=== PATIENT | male | born 1955 | race Caucasian/White ===

== ENCOUNTER 2016-09-25 12:32 | Emergency (ER) | payer OTHER ==
[~2016-09-25] VITALS: Ht 177.8 cm; Wt 65.0 kg
[2016-09-25 12:33] VITALS: BP 108/77; PULSE 72; RESP 16; TEMP 98.2; O2SAT 98
[2016-09-25] MEDS ORDERED: SODIUM CHLOR 0.9% 1000 ML INJ 1,000 ML IV SCH (12:42)
[2016-09-25] MEDS ORDERED: XANA1TAB2 PO (12:43)
[2016-09-25] MEDS ORDERED: LOMO2.5T PO (12:43)
[2016-09-25] MEDS ORDERED: HYDR-3583 PO (12:43)
[2016-09-25] MEDS ORDERED: LISI10TA3 PO (12:43)
[2016-09-25] MEDS ORDERED: PANTOPRAZOLE SODIUM 40 MG VIAL IVP ONE (12:45)
[2016-09-25] MEDS ORDERED: ONDANSETRON HCL 4 MG/2 ML VIAL IVP ONE (12:45)
--- NOTE | 2016-09-25 12:51 | PD ---
HPI Chief Complaint: GI Complaint Time Seen by Provider: 12:37 Travel History International Travel<30 days: No Contact w/Intl Traveler<30days: No Traveled to known affect area: No History of Present Illness HPI 61-year-old male complains of abdominal pain with nausea vomiting. Patient states that the symptoms started this a year ago. Patient was seen by GI specialist and had upper GI endoscopy and colonoscopy without clear etiology of the symptoms. Patient states that the abdominal pain in cramping pain mostly around the epigastric area. Patient denies any pain radiation. Patient states that the abdominal cramping with nausea vomiting small frequent for the past 2 months. Patient denies any fever chills. Patient denies any headache. Patient any chest pain or shortness of breath. Patient denies any dysuria or frequency. Patient denies any back pain. Patient states that he has history of hepatitis C and was treated with complete resolution of the problem. PFSH Social History Tobacco Use: No Allergies-Medications (Allergen,Severity, Reaction): Coded Allergies: No Known Allergies (Unverified , 09/25/16) Reported Meds & Prescriptions Reported Meds & Active Scripts Active Zofran Odt (Ondansetron Odt) 4 Mg Tab 4 Mg SL Q6HR PRN Bentyl (Dicyclomine HCl) 10 Mg Cap 10 Mg PO TID PRN Protonix (Pantoprazole Sodium) 20 Mg Tab 20 Mg PO DAILY Reported Hydrocodone-Acetaminophen 10-325 mg Tab 1 Tab PO Q4H PRN Xanax (Alprazolam) 1 Mg Tab 1 Mg PO Q6H PRN Lomotil (Diphenoxylate-Atropine) 2.5-0.025 Mg Tab 1 Tab PO Q6H PRN Lisinopril 10 Mg Tab 10 Mg PO DAILY Review of Systems General / Constitutional: No: Fever Eyes: No: Visual changes HENT: No: Headaches Cardiovascular: No: Chest Pain or Discomfort Respiratory: No: Shortness of Breath Gastrointestinal: Positive: Nausea, Vomiting, Abdominal Pain Genitourinary: No: Dysuria Musculoskeletal: No: Pain Skin: No Rash Neurologic: No: Weakness Psychiatric: No: Depression Endocrine: No: Polydipsia Hematologic/Lymphatic: No: Easy Bruising Physical Exam Narrative GENERAL: Well-nourished, well-developed patient. SKIN: Focused skin assessment warm/dry. HEAD: Normocephalic. EYES: No scleral icterus. No injection or drainage. NECK: Supple, trachea midline. No JVD or lymphadenopathy. CARDIOVASCULAR: Regular rate and rhythm without murmurs, gallops, or rubs. RESPIRATORY: Breath sounds equal bilaterally. No accessory muscle use. GASTROINTESTINAL: Abdomen soft, nondistended. Patient has mild tenderness on palpation epigastric area. No rebound tenderness. No mass MUSCULOSKELETAL: No cyanosis, or edema. BACK: Nontender without obvious deformity. No CVA tenderness. Neurologic exam normal. Data Data Last Documented VS Vital Signs Date Time Temp Pulse Resp B/P Pulse Ox O2 Delivery O2 Flow Rate FiO2 09/25/16 12:56 18 09/25/16 12:55 97 2 09/25/16 12:33 98.2 72 108/77 Orders Complete Blood Count With Diff (09/25/16 12:42) Comprehensive Metabolic Panel (09/25/16 12:42) Lipase (09/25/16 12:42) Prothrombin Time / Inr (Pt) (09/25/16 12:42) Act Partial Throm Time (Ptt) (09/25/16 12:42) Urinalysis - C+S If Indicated (09/25/16 12:42) Ct Abd/Pel W Iv Contrast(Rout) (09/25/16 12:42) Iv Access Insert/Monitor (09/25/16 12:42) Ecg Monitoring (09/25/16 12:42) Oximetry (09/25/16 12:42) Ondansetron Inj (Zofran Inj) (09/25/16 12:45) Pantoprazole Inj (Protonix Inj) (09/25/16 12:45) Sodium Chlor 0.9% 1000 Ml Inj (Ns 1000 M (09/25/16 12:42) Electrocardiogram (09/25/16 12:42) Drug Screen, Random Urine (09/25/16 12:47) Iohexol 350 Inj (Omnipaque 350 Inj) (09/25/16 14:03) Labs Laboratory Tests Test 09/25/16 09/25/16 12:46 13:35 White Blood Count 5.8 TH/MM3 Red Blood Count 3.83 MIL/MM3 Hemoglobin 12.2 GM/DL Hematocrit 35.2 % Mean Corpuscular Volume 92.1 FL Mean Corpuscular Hemoglobin 31.9 PG Mean Corpuscular Hemoglobin 34.7 % Concent Red Cell Distribution Width 12.4 % Platelet Count 186 TH/MM3 Mean Platelet Volume 8.4 FL Neutrophils (%) (Auto) 47.8 % Lymphocytes (%) (Auto) 41.3 % Monocytes (%) (Auto) 9.2 % Eosinophils (%) (Auto) 0.9 % Basophils (%) (Auto) 0.8 % Neutrophils # (Auto) 2.8 TH/MM3 Lymphocytes # (Auto) 2.4 TH/MM3 Monocytes # (Auto) 0.5 TH/MM3 Eosinophils # (Auto) 0.1 TH/MM3 Basophils # (Auto) 0.0 TH/MM3 CBC Comment DIFF FINAL Differential Comment Prothrombin Time 11.6 SEC Prothromb Time International 1.0 RATIO Ratio Activated Partial 28.3 SEC Thromboplast Time Sodium Level 137 MEQ/L Potassium Level 4.0 MEQ/L Chloride Level 102 MEQ/L Carbon Dioxide Level 27.4 MEQ/L Anion Gap 8 MEQ/L Blood Urea Nitrogen 13 MG/DL Creatinine 1.02 MG/DL Estimat Glomerular Filtration 74 ML/MIN Rate Random Glucose 80 MG/DL Calcium Level 8.7 MG/DL Total Bilirubin 0.8 MG/DL Aspartate Amino Transf 17 U/L (AST/SGOT) Alanine Aminotransferase 25 U/L (ALT/SGPT) Alkaline Phosphatase 58 U/L Total Protein 6.7 GM/DL Albumin 4.2 GM/DL Lipase 158 U/L Urine Color YELLOW Urine Turbidity CLEAR Urine pH 5.5 Urine Specific Foster 1.015 Urine Protein NEG mg/dL Urine Glucose (UA) NEG mg/dL Urine Ketones NEG mg/dL Urine Occult Blood NEG Urine Nitrite NEG Urine Bilirubin NEG Urine Urobilinogen LESS THAN 2.0 MG/DL Urine Leukocyte Esterase NEG Urine WBC 1 /hpf Microscopic Urinalysis Comment CULT NOT INDICATED Urine Opiates Screen POS Urine Barbiturates Screen NEG Urine Amphetamines Screen NEG Urine Benzodiazepines Screen POS Urine Cocaine Screen NEG Urine Cannabinoids Screen POS [facility] Medical Decision Making Medical Screen Exam Complete: Yes Emergency Medical Condition: Yes Interpretation(s) [address] scan abdomen and pelvis negative acute pathology. CBC within normal limit. CMP within normal limit. Urine drug screen positive for opiates , benzodiazepine, cannabis. UA is negative. Differential Diagnosis Differential diagnosis including gastritis, PUD, appendicitis, cholecystitis, colitis, UTI, pyelonephritis. Narrative Course 61-year-old male with recurrent abdominal pain and nausea vomiting. Diagnosis Primary Impression: Abdominal pain Qualified Code: R10.9 - Abdominal pain, unspecified location Patient Instructions: General Instructions Additional Instructions: Take medications as directed. Follow-up with undercoater. Return if worse. Med/Other Pt SpecificInfo: Prescription(s) given Scripts Ondansetron Odt (Zofran Odt)4 Mg Tab4 Mg SL Q6HR PRN (Nausea/Vomiting) #10 TAB Prov:Omar Yanez MD 09/25/16 Dicyclomine (Bentyl)10 Mg Cap10 Mg PO TID PRN (PAIN SCALE 1 TO 10) #30 CAP Ref 0 Prov:Omar Yanez MD 09/25/16 Pantoprazole (Protonix)20 Mg Tab20 Mg PO DAILY #30 TAB Prov:Omar Yanez MD 09/25/16 Disposition: 01 DISCHARGE HOME Condition: Stable Omar Yanez MD September 25, 2016 12:50
[2016-09-25 12:55] VITALS: O2SAT 97
[2016-09-25 13:14] LABS: AUTOMATED NEUTROPHIL # 2.8 TH/MM3 (1.8-7.7); BASOPHIL % 0.8 % (0.0-2.0); EOSINOPHIL # 0.1 TH/MM3 (0-0.4); EOSINOPHIL % 0.9 % (0.0-4.0); HEMATOCRIT 35.2 % (39.0-51.0); HEMO FLAGS DIFF FINAL; LYMPH % 41.3 % (9.0-44.0); LYMPHOCYTE # 2.4 TH/MM3 (1.0-4.8); MEAN CELL VOLUME 92.1 FL (80.0-100.0); MEAN CORPUSCULAR HEMOGLOBIN 31.9 PG (27.0-34.0); MEAN CORPUSCULAR HGB CONC 34.7 % (32.0-36.0); MONO % 9.2 % (0.0-8.0); NEUT % 47.8 % (16.0-70.0); PLATELET COUNT 186 TH/MM3 (150-450); RED BLOOD COUNT 3.83 MIL/MM3 (4.50-5.90); RED CELL DISTRIBUTION WIDTH 12.4 % (11.6-17.2); WHITE BLOOD COUNT 5.8 TH/MM3 (4.0-11.0)
[2016-09-25 13:19] LABS: APTT (PATIENT) 28.3 SEC (24.3-30.1); PROTHROMBIN TIME - PATIENT 11.6 SEC (9.8-11.6)
[2016-09-25 13:28] LABS: ALT (GPT) 25 U/L (12-78); ANION GAP 8 MEQ/L (5-15); AST (GOT) 17 U/L (15-37); BICARBONATE 27.4 MEQ/L (21.0-32.0); BLOOD UREA NITROGEN 13 MG/DL (7-18); CHLORIDE 102 MEQ/L (98-107); GLOMERULAR FILTRATION RATE 74 ML/MIN (>89); SODIUM (NA) 137 MEQ/L (136-145)
[2016-09-25 13:31] LABS: ALKALINE PHOSPHATASE 58 U/L (45-117); TOTAL BILIRUBIN ADULT 0.8 MG/DL (0.2-1.0)
[2016-09-25 14:00] LABS: BLOOD, URINE NEG (NEG); GLUCOSE,URINE NEG (NEG); KETONE, URINE NEG (NEG); NITRITE,URINE NEG (NEG); PH, URINE 5.5 (5.0-8.5); URINE COLOR YELLOW (YELLW/STRAW)
[2016-09-25 14:02] LABS: COMMENT (UR) CULT NOT INDICATED; CULTURE IF INDICATED CULT NOT INDICATED
[2016-09-25 14:03] LABS: AMPHETAMINE, URINE NEG (NEG); BARBITURATES, URINE NEG (NEG); COCAINE, URINE NEG (NEG)
[2016-09-25] MEDS ORDERED: IOHEXOL 350 MG/ML 10 ML VIAL (for RAD DIAG) IV ONE (14:03)
--- NOTE | 2016-09-25 14:19 | RADRPT ---
EXAM DATE/TIME: 09/25/2016 14:01 [place] COMPARISON: No previous studies available for comparison. INDICATIONS : Epigastric abdomen pain with nausea and vomiting for one month. IV CONTRAST: 76 cc Omnipaque 350 (iohexol) IV ORAL CONTRAST: No oral contrast ingested. RADIATION DOSE: 9.54 CTDIvol (mGy) MEDICAL HISTORY : None SURGICAL HISTORY : None. ENCOUNTER: Initial ACUITY: 1 month PAIN SCALE: 7/10 LOCATION: epigastric pain TECHNIQUE: Volumetric scanning of the abdomen and pelvis was performed. Using automated exposure control and ad justment of the mA and/or kV according to patient size, radiation dose was kept as low as reasonably achievable to obtain optimal diagnostic quality images. FINDINGS: LOWER LUNGS: The visualized lower lungs are clear. LIVER: Homogeneous density without lesion. There is no dilation of the biliary tree. No calcified gallston es. SPLEEN: Normal size without lesion. PANCREAS: Within normal limits. KIDNEYS: Normal in size and shape. There is no mass, stone or hydronephrosis. ADRENAL GLANDS: Within normal limits. VASCULAR: There is no aortic aneurysm. There is mild atherosclerotic disease. BOWEL/MESENTERY: The stomach, small bowel, and colon demonstrate no acute abnormality. There is mild distention of fl uid-filled small bowel but no findings to suggest obstruction. There is no free intraperitoneal air o r fluid. ABDOMINAL WALL: Within normal limits. RETROPERITONEUM: There is no lymphadenopathy. BLADDER: No wall thickening or mass. REPRODUCTIVE: Within normal limits. INGUINAL: There is no lymphadenopathy or hernia. MUSCULOSKELETAL: There is mild degenerative change of the lumbar spine. CONCLUSION: No acute finding is identified within the abdomen or pelvis. Vidal Chaney MD on September 25, 2016 at 14:14 Board Certified Radiologist. This report was verified electronically.
[2016-09-25] MEDS ORDERED: PANT20 PO (14:27)
[2016-09-25] MEDS ORDERED: DICY10 PO (14:27)
[2016-09-25] MEDS ORDERED: ZOFR4TAB3 SL (14:27)
--- NOTE | 2016-09-25 14:53 | EKG ---
Date Performed: 09/25/2016 Time Performed: 12:53:50 PTAGE: 61 years EKG: MarkBASELINE ARTIFACT PRESENT. Unclear underlying rhythm ABNORMAL ECG INTERPRETATION BASED ON A DEFAULT AGE OF 40 YEARS Would repeat electrocardiogram NO PREVIOUS TRACING DOCTOR: Misael Sage Interpretating Date/Time 09/25/2016 14:52:30
== END 2016-09-25 15:08 | disposition home or self-care (01) ==
LOC: NEPD 12:32
DX: R10.9 Unspecified abdominal pain (principal); R11.2 Nausea with vomiting, unspecified; Z86.19 Personal history of other infectious and parasitic diseases; Z79.899 Other long term (current) drug therapy
CPT/HCPCS: 74177; 80053; 80307; 81001; 83690; 85025; 85610; 85730; 93005; 96374; 96375; 99285; C9113; J2405; J7030; Q9967

== ENCOUNTER 2017-07-19 14:58 | Emergency (ER) | payer OTHER ==
[~2017-07-19 14:58] MED LIST: DICY10 PO; HYDR-3583 PO; LISI10TA3 PO; LOMO2.5T PO; PANT20 PO; XANA1TAB2 PO; ZOFR4TAB3 SL
[2017-07-19 15:46] VITALS: BP 115/76; PULSE 56; RESP 18; TEMP 96.2; O2SAT 100
--- NOTE | 2017-07-19 17:28 | PD ---
HPI Chief Complaint: Cold / Flu Symptoms Time Seen by Provider: 15:46 Travel History International Travel<30 days: No Contact w/Intl Traveler<30days: No Traveled to known affect area: No History of Present Illness HPI Pt is a 62-year-old male presenting to emerge from for evaluation of nasal congestion, sinus pressure. [facility]. Patient denies any cough, fever, chills, nausea, vomiting, abdominal pain or chest pain. Symptom onset was gradual, symptom severity is mild to moderate, there are no alleviating factors. PFSH Past Medical History Anxiety: Yes Herniated Disk: Yes Hypertension: Yes Social History Alcohol Use: Yes Tobacco Use: No Allergies-Medications (Allergen,Severity, Reaction): Coded Allergies: No Known Allergies (Unverified , 09/25/16) Reported Meds & Prescriptions Reported Meds & Active Scripts Active Zofran Odt (Ondansetron Odt) 4 Mg Tab 4 Mg SL Q6HR PRN Bentyl (Dicyclomine HCl) 10 Mg Cap 10 Mg PO TID PRN Protonix (Pantoprazole Sodium) 20 Mg Tab 20 Mg PO DAILY Reported Hydrocodone-Acetaminophen 10-325 mg Tab 1 Tab PO Q4H PRN Xanax (Alprazolam) 1 Mg Tab 1 Mg PO Q6H PRN Lomotil (Diphenoxylate-Atropine) 2.5-0.025 Mg Tab 1 Tab PO Q6H PRN Lisinopril 10 Mg Tab 10 Mg PO DAILY Review of Systems Except as stated in HPI: all other systems reviewed are Neg General / Constitutional: No: Fever, Chills HENT: Positive: Rhinitis, Congestion Cardiovascular: No: Chest Pain or Discomfort Respiratory: No: Cough, Shortness of Breath Gastrointestinal: No: Nausea, Abdominal Pain Musculoskeletal: No: Myalgias Physical Exam Narrative GENERAL: Well-developed, well-nourished, well-appearing male. Presenting in no acute distress. SKIN: Warm and dry. HEAD: Normocephalic. EYES: No scleral icterus. No injection or drainage. NECK: Supple, trachea midline. No JVD or lymphadenopathy. CARDIOVASCULAR: Regular rate RESPIRATORY: No accessory muscle use. Data Data Last Documented VS Vital Signs Date Time Temp Pulse Resp B/P (MAP) Pulse Ox O2 Delivery O2 Flow Rate FiO2 07/19/17 15:46 96.2 56 18 115/76 (89) 100 [facility] Medical Decision Making Medical Screen Exam Complete: Yes Emergency Medical Condition: Yes Interpretation(s) Vital Signs Date Time Temp Pulse Resp B/P (MAP) Pulse Ox O2 Delivery O2 Flow Rate FiO2 07/19/17 15:46 96.2 56 18 115/76 (89) 100 Differential Diagnosis Sinusitis versus upper respiratory infection versus bronchitis versus other Narrative Course Patient is a 62-year-old male that presented to emergency department for evaluation cold and flulike symptoms. Vital signs are stable, patient is awaiting bed placement. Patient was called be placed in a bed, he was no longer found in the emergency department. Patient left AMA. Diagnosis Primary Impression: Left against medical advice Daja Maldonado Jul 19, 2017 17:28
== END 2017-07-20 01:36 | disposition left against medical advice (07) ==
LOC: NED 14:58
DX: R09.81 Nasal congestion (principal); J34.89 Other specified disorders of nose and nasal sinuses; F41.9 Anxiety disorder, unspecified; I10 Essential (primary) hypertension; Z53.20 Procedure and treatment not carried out because of patient's decision for unspecified reasons
CPT/HCPCS: 99281